=== PATIENT | male | born 1995 | race Caucasian/White ===

== ENCOUNTER 2018-09-28 18:56 | Emergency (ER) | payer BC, OTHER ==
[~2018-09-28] VITALS: Ht 165.1 cm; Wt 86.2 kg
[2018-09-28 19:43] VITALS: BP 155/92
[2018-09-28] MEDS ORDERED: IBUPROFEN 600 MG TABLET PO ONE ×2 (20:30→20:32)
[2018-09-28] MEDS ORDERED: CEFTRIAXONE 500 MG VIAL IM ONE (20:30)
[2018-09-28] MEDS ORDERED: AZITHROMYCIN 250 MG TABLET PO ONE (20:30)
[2018-09-28] MEDS ORDERED: ONDANSETRON 4 MG TAB.RAPDIS SL ONE (20:30)
[2018-09-28] MEDS ORDERED: AZITHROMYCIN 250 MG TABLET ONE (20:31)
[2018-09-28] MEDS ORDERED: CEFTRIAXONE 500 MG VIAL ONE (20:31)
[2018-09-28] MEDS ORDERED: ONDANSETRON 4 MG TAB.RAPDIS ONE (20:32)
[2018-09-28 20:36] LABS: BILIRUBIN,URINE Negative (NEGATIVE); BLOOD, URINE Negative Ery/uL (NEGATIVE); COLOR,URINE Yellow (YELLOW); KETONES,URINE Negative (NEGATIVE); LEUKOCYTE ESTERASE ,URINE Negative (NEGATIVE); NITRITE, URINE Negative (NEGATIVE); PH,URINE 7.5 (5.0-8.0); PROTEIN,URINE Negative (NEGATIVE); UGLUCOSE Negative (NEGATIVE)
[2018-09-28 20:38] LABS: APPEARANCE,URINE HAZY (CLEAR)
[2018-09-28 20:45] LABS: BACTERIA,URINE Moderate /HPF (None Seen); RBC,URINE 0-2 /HPF (0-2); SQUAMOUS EPITHELIAL CELL,UR Few /HPF (None Seen); WBC,URINE 0-2 /HPF (0-3)
== END 2018-09-28 20:52 | disposition home or self-care (01) ==
LOC: ER 19:08
DX: N45.1 Epididymitis (principal); F10.10 Alcohol abuse, uncomplicated; Y90.9 Presence of alcohol in blood, level not specified
CPT/HCPCS: 81001; 87086; 87491; 87591; 99284; J0696; Q0162; 81000-TC

== ENCOUNTER 2019-06-12 13:49 | Emergency (ER) | payer BC, OTHER ==
[~2019-06-12] VITALS: Ht 162.6 cm; Wt 89.4 kg
--- NOTE | 2019-06-12 14:15 | NUR ---
c/o palpitation started yesterday, denies chest pain. Patient a/ox4, no distress noted, needs attended. Kept comfortable. Attached to the marble polisher.
[2019-06-12 14:42] LABS: BASOPHILS # (AUTO) 0.1 /CMM (0.0-0.2); BASOPHILS % (AUTO) 1.2 % (0.0-2.0); EOSINOPHILS % (AUTO) 0.4 % (0.0-6.0); HEMATOCRIT 46 % (39-51); HEMOGLOBIN 15.6 g/dL (13.5-17.5); LYMPHOCYTES # (AUTO) 2.1 /CMM (0.8-4.8); LYMPHOCYTES % (AUTO) 29.8 % (20.0-44.0); MEAN CORPUSCULAR HGB CONC 34 g/dl (31.0-36.0); MEAN CORPUSCULAR VOLUME 95 fL (80-96); MONOCYTES # (AUTO) 0.4 /CMM (0.1-1.30); MONOCYTES % (AUTO) 6.1 % (2.0-12.0); NEUTROPHILS # (AUTO) 4.5 /CMM (1.8-8.9); NEUTROPHILS % (AUTO) 62.5 % (43.0-81.0); PLATELET COUNT (AUTO) 444 /CMM (150-450); RED BLOOD CELL COUNT(AUTO) 4.84 MIL/uL (4.5-6.0); WHITE BLOOD COUNT (AUTO) 7.2 K/uL (4.3-11.0)
[2019-06-12 14:58] LABS: CALCIUM, SERUM 9.1 mg/dL (8.5-10.1); CARBON DIOXIDE 28 mmol/L (21-32); CHLORIDE 103 mmol/L (98-107); GLUCOSE 96 mg/dL (74-106); POTASSIUM 3.8 mmol/L (3.5-5.1); SODIUM SERUM 141 mmol/L (136-145)
[2019-06-12 14:59] LABS: CREATININE 1.1 mg/dL (0.6-1.3); UREA NITROGEN, BLOOD 15 mg/dL (7-18)
[2019-06-12 15:05] LABS: BILIRUBIN,DIRECT 0.1 mg/dL (0.0-0.2); BILIRUBIN,TOTAL 0.4 mg/dL (0.2-1.0)
[2019-06-12 15:06] LABS: ALANINE AMINOTRANSFERASE 62 U/L (12-78); ALBUMIN 3.9 g/dL (3.4-5.0); ALKALINE PHOSPHATASE 66 U/L (46-116); ASPARTATE AMINOTRANSFERASE 36 U/L (15-37)
[2019-06-12 15:07] LABS: TOTAL PROTEIN, SERUM 8.1 g/dL (6.4-8.2)
[2019-06-12 15:57] VITALS: BP 140/86
== END 2019-06-12 15:57 | disposition home or self-care (01) ==
LOC: ER 13:49
DX: R00.2 Palpitations (principal); F10.10 Alcohol abuse, uncomplicated; Y90.9 Presence of alcohol in blood, level not specified; Z60.2 Problems related to living alone
CPT/HCPCS: 36415; 71045-TC; 80048-TC; 80076-TC; 84484-TC; 85025-TC

== ENCOUNTER 2019-10-10 14:24 | Emergency (ER) | payer BC, OTHER ==
[~2019-10-10] VITALS: Ht 165.1 cm; Wt 90.3 kg
[2019-10-10] MEDS ORDERED: TETRAcaine 5 ML BOTTLE EACHEYE ONE (15:00)
[2019-10-10] MEDS ORDERED: SOD BORATE/BORIC AC/H2O/NACL 118 ML BOTTLE OP ONE (15:00)
[2019-10-10] MEDS ORDERED: FLUORESCEIN SODIUM OPHTH 1 EA STRIP OP ONE (15:00)
[2019-10-10] MEDS ORDERED: FLUORESCEIN SODIUM OPHTH 1 EA STRIP ONE (15:07)
--- NOTE | 2019-10-10 15:27 | NUR ---
Patient discharged to home in stable condition. Written and verbal after care instructions given. Patient verbalizes understanding of instruction.
[2019-10-10 15:30] VITALS: BP 131/87
== END 2019-10-10 15:31 | disposition home or self-care (01) ==
LOC: ER 14:24
DX: S05.02XA Injury of conjunctiva and corneal abrasion without foreign body, left eye, initial encounter (principal); Z60.2 Problems related to living alone; X58.XXXA Exposure to other specified factors, initial encounter; Y93.89 Activity, other specified; Y92.89 Other specified places as the place of occurrence of the external cause; Y99.8 Other external cause status

== ENCOUNTER 2020-01-05 09:52 | Emergency (ER) | payer BC, OTHER ==
[~2020-01-05] VITALS: Ht 165.1 cm; Wt 86.2 kg
--- NOTE | 2020-01-05 09:57 | NUR ---
CAME IN FOR L FLANK PAIN x 1WEEK, 6 PS. TO ER BED 9, HOOKED TO MONITOR, DR FONTENOT AT BEDSIDE
[2020-01-05] MEDS ORDERED: KETOROLAC TROMETHAMINE INJ 60 MG/2 ML VIAL IM ONE (10:10)
[2020-01-05 10:11] LABS: APPEARANCE,URINE Clear (CLEAR); BILIRUBIN,URINE Negative (NEGATIVE); BLOOD, URINE Trace-lysed Ery/uL (NEGATIVE); COLOR,URINE Yellow (YELLOW); KETONES,URINE Negative (NEGATIVE); LEUKOCYTE ESTERASE ,URINE Negative (NEGATIVE); NITRITE, URINE Negative (NEGATIVE); PROTEIN,URINE Negative (NEGATIVE); UGLUCOSE Negative (NEGATIVE); UROBILINOGEN,URINE 0.2 EU/dL (0.2)
[2020-01-05] MEDS: KETOROLAC TROMETHAMINE INJ 30 MG/ML VIAL IM/IV ONE (10:15)
[2020-01-05 10:26] LABS: BACTERIA,URINE Few /HPF (None Seen); RBC,URINE 0-2 /HPF (0-2); SQUAMOUS EPITHELIAL CELL,UR Few /HPF (None Seen)
[2020-01-05 10:46] VITALS: BP 142/80
--- NOTE | 2020-01-05 10:46 | NUR ---
Patient discharged to home in stable condition. Written and verbal after care instructions given. Patient verbalizes understanding of instruction.
== END 2020-01-05 10:47 | disposition home or self-care (01) ==
LOC: ER 09:52
DX: M54.5 Low back pain (principal)
CPT/HCPCS: 81001; 96372; 99283; J1885; 81000-TC

== ENCOUNTER 2020-05-28 09:51 | Emergency (ER) | payer BC, OTHER ==
[~2020-05-28] VITALS: Ht 165.1 cm; Wt 91.2 kg
[2020-05-28] MEDS ORDERED: KETOROLAC TROMETHAMINE 15 MG/ML VIAL ONE (10:10)
--- NOTE | 2020-05-28 10:10 | NUR ---
RUQ ABDOMINAL PAIN SINCE LAST NIGHT. -N/V. PATIENT A/OX4, BREATHING EVEN AND UNLABORED, NO SOB NOTED, NEEDS ATTENDED, KEPT COMFORTABLE. ATTACHED TO THE DEXTRINE MIXER.
[2020-05-28] MEDS ORDERED: KETOROLAC TROMETHAMINE INJ 30 MG/ML VIAL IV ONE (10:30)
[2020-05-28] MEDS ORDERED: IV NS 0.9% 1,000 ML BAG IV ONE (10:30)
[2020-05-28 10:54] LABS: BASOPHILS # (AUTO) 0.1 /CMM (0.0-0.2); BASOPHILS % (AUTO) 0.8 % (0.0-2.0); EOSINOPHILS % (AUTO) 0.6 % (0.0-6.0); HEMATOCRIT 46 % (39-51); HEMOGLOBIN 15.5 g/dL (13.5-17.5); LYMPHOCYTES # (AUTO) 1.7 /CMM (0.8-4.8); LYMPHOCYTES % (AUTO) 24.9 % (20.0-44.0); MEAN CORPUSCULAR HGB CONC 34 g/dl (31.0-36.0); MEAN CORPUSCULAR VOLUME 95 fL (80-96); MONOCYTES # (AUTO) 0.5 /CMM (0.1-1.30); MONOCYTES % (AUTO) 7.5 % (2.0-12.0); NEUTROPHILS # (AUTO) 4.6 /CMM (1.8-8.9); NEUTROPHILS % (AUTO) 66.2 % (43.0-81.0); PLATELET COUNT (AUTO) 265 /CMM (150-450); WHITE BLOOD COUNT (AUTO) 6.9 K/uL (4.3-11.0)
--- NOTE | 2020-05-28 11:00 | NUR ---
PATIENT RESTING, NO DISTRESS NOTED.
[2020-05-28 11:12] LABS: ALBUMIN 4.2 g/dL (3.4-5.0); BILIRUBIN,DIRECT 0.3 mg/dL (0.0-0.2); BILIRUBIN,TOTAL 0.9 mg/dL (0.2-1.0); CALCIUM, SERUM 9.3 mg/dL (8.5-10.1); POTASSIUM 3.8 mmol/L (3.5-5.1); TOTAL PROTEIN, SERUM 8.1 g/dL (6.4-8.2)
[2020-05-28 11:17] LABS: BILIRUBIN,URINE NEGATIVE (NEGATIVE); BLOOD, URINE NEGATIVE Ery/uL (NEGATIVE); COLOR,URINE YELLOW (YELLOW); LEUKOCYTE ESTERASE ,URINE NEGATIVE (NEGATIVE); NITRITE, URINE POSITIVE (NEGATIVE); PH,URINE 6.5 (5.0-8.0); PROTEIN,URINE NEGATIVE (NEGATIVE); UGLUCOSE NEGATIVE (NEGATIVE); UROBILINOGEN,URINE 0.2 EU/dL (0.2)
[2020-05-28 11:34] LABS: BACTERIA,URINE Moderate /HPF (None Seen); RBC,URINE 0-2 /HPF (0-2); SQUAMOUS EPITHELIAL CELL,UR Rare /HPF (None Seen); WBC,URINE 0-2 /HPF (0-3)
[2020-05-28] MEDS ORDERED: MAG HYDROX/AL HYDROX/SIMETH 30 ML UDC ONE (11:56)
[2020-05-28] MEDS ORDERED: LIDOCAINE VISCOUS 2% UD 15 ML UDC ONE (11:56)
[2020-05-28] MEDS ORDERED: MAG HYDROX/AL HYDROX/SIMETH 30 ML UDC PO ONE (12:00)
[2020-05-28] MEDS ORDERED: LIDOCAINE VISCOUS 2% UD 15 ML UDC MM ONE (12:00)
--- NOTE | 2020-05-28 12:01 | NUR ---
PER PATIENT, HE HAD HX OF COVID BACK IN MARCH, INFORMED DR. GALE, AND CANCELLED COVID PCR TEST AT THIS TIME.
--- NOTE | 2020-05-28 12:15 | NUR ---
[employer] DAT[employer] DEVELOPER SURGEON DR. RIKKI SERVIN FOR A CONSULT.
--- NOTE | 2020-05-28 12:47 | NUR ---
Patient's a/ox4, denies paina t this time. Rx provided and explained. IV removed. Catheter intact and site benign. Pressure and 4x4 applied to site. No bleeding noted.Patient discharged to home in stable condition. Written and verbal after care instructions given. Patient verbalizes understanding of instruction.
[2020-05-28 12:48] VITALS: BP 136/77
== END 2020-05-28 12:48 | disposition home or self-care (01) ==
LOC: ER 09:54
DX: R10.13 Epigastric pain (principal); K76.0 Fatty (change of) liver, not elsewhere classified; R10.11 Right upper quadrant pain; Z60.2 Problems related to living alone
CPT/HCPCS: 36415; 71045; 76705; 80048; 80076; 81001; 83690; 85025; 87086; 96361; 96374; 99285; J1885; J7030

== ENCOUNTER 2020-06-26 18:57 | Emergency (ER) | payer BC, OTHER ==
[~2020-06-26] VITALS: Ht 165.1 cm; Wt 89.8 kg
--- NOTE | 2020-06-26 19:47 | NUR ---
PATIENT CAME TO THE ER BED 18 C/O LEFT FLANK PAIN THAT RADIATES FROM THE BACK SINCE YESTERDAY. PATIENT STATES THAT HE WAS NOT ABLE TO HAVE A BOWEL MOVEMENT FOR THE PAST 2 DAYS. PATIENT STATES THAT WHATEVER HE TRIES TO EAT WILL BE VOMITED BACK UP. DENIES HEMATEMSIS. PATIENT IS AAOX4. NO SOB. BREATHING EVENLY AND UNLABORED ON ROOM AIR. CONNECTED TO THE MONITOR.
--- NOTE | 2020-06-26 19:48 | NUR ---
RETURNED FROM CT.
--- NOTE | 2020-06-26 19:53 | NUR ---
blood collected and sent to the lab.
[2020-06-26 19:58] LABS: BASOPHILS # (AUTO) 0.1 /CMM (0.0-0.2); BASOPHILS % (AUTO) 0.3 % (0.0-2.0); HEMATOCRIT 51 % (39-51); HEMOGLOBIN 16.9 g/dL (13.5-17.5); LYMPHOCYTES # (AUTO) 0.9 /CMM (0.8-4.8); LYMPHOCYTES % (AUTO) 5.5 % (20.0-44.0); MEAN CORPUSCULAR HGB CONC 33 g/dl (31.0-36.0); MEAN CORPUSCULAR VOLUME 96 fL (80-96); MONOCYTES % (AUTO) 5.9 % (2.0-12.0); NEUTROPHILS # (AUTO) 14.7 /CMM (1.8-8.9); NEUTROPHILS % (AUTO) 88.3 % (43.0-81.0); PLATELET COUNT (AUTO) 284 /CMM (150-450); RED BLOOD CELL COUNT(AUTO) 5.29 MIL/uL (4.5-6.0); WHITE BLOOD COUNT (AUTO) 16.6 K/uL (4.3-11.0)
[2020-06-26] MEDS ORDERED: KETOROLAC TROMETHAMINE 15 MG/ML VIAL ONE (20:00)
[2020-06-26] MEDS ORDERED: ONDANSETRON HCL/PF 4 MG/2 ML VIAL ONE (20:00)
[2020-06-26 20:05] LABS: CALCIUM, SERUM 9.5 mg/dL (8.5-10.1); POTASSIUM 3.7 mmol/L (3.5-5.1)
[2020-06-26] MEDS: KETOROLAC TROMETHAMINE INJ 30 MG/ML VIAL IV ONE (20:06)
--- NOTE | 2020-06-26 20:06 | NUR ---
URINE SENT TO LAB,
[2020-06-26] MEDS: ONDANSETRON HCL/PF 4 MG/2 ML VIAL IVP ONE (20:07)
[2020-06-26 20:10] LABS: BILIRUBIN,URINE SMALL (NEGATIVE); COLOR,URINE YELLOW (YELLOW); LEUKOCYTE ESTERASE ,URINE Negative (NEGATIVE); NITRITE, URINE Negative (NEGATIVE); PH,URINE 5.5 (5.0-8.0); PROTEIN,URINE Trace mg/dl (NEGATIVE); UGLUCOSE Negative (NEGATIVE)
[2020-06-26 20:12] LABS: ALBUMIN 4.4 g/dL (3.4-5.0); BILIRUBIN,DIRECT 0.3 mg/dL (0.0-0.2); BILIRUBIN,TOTAL 1.3 mg/dL (0.2-1.0); TOTAL PROTEIN, SERUM 9.2 g/dL (6.4-8.2)
[2020-06-26 20:43] LABS: BACTERIA,URINE Rare /HPF (None Seen); SQUAMOUS EPITHELIAL CELL,UR Few /HPF (None Seen); WBC,URINE NONE SEEN /HPF (0-3)
[2020-06-26] MEDS ORDERED: CIPROFLOXACIN HCL 500 MG TABLET ONE (21:06)
[2020-06-26] MEDS ORDERED: METRONIDAZOLE 500 MG TABLET ONE (21:07)
[2020-06-26] MEDS: METRONIDAZOLE 500 MG TABLET PO ONE (21:09)
[2020-06-26] MEDS: CIPROFLOXACIN HCL 500 MG TABLET PO ONE (21:09)
[2020-06-26 21:17] VITALS: BP 131/76
--- NOTE | 2020-06-26 21:17 | NUR ---
Patient discharged to home in stable condition. Written and verbal after care instructions given. Patient verbalizes understanding of instruction.IV removed. Catheter intact and site benign. Pressure and 4x4 applied to site. No bleeding noted.Pt ambulatory with a steady gait
== END 2020-06-26 21:17 | disposition home or self-care (01) ==
LOC: ER 18:57
DX: K57.32 Diverticulitis of large intestine without perforation or abscess without bleeding (principal); R11.2 Nausea with vomiting, unspecified; Z60.2 Problems related to living alone
CPT/HCPCS: 36415; 74176; 80048; 80076; 81001; 83690; 85025; 87086; 96374; 96375; 99284; J1885; J2405

== ENCOUNTER 2020-10-27 08:37 | Emergency (ER) | payer BC, OTHER ==
[~2020-10-27] VITALS: Ht 165.1 cm; Wt 80.7 kg
--- NOTE | 2020-10-27 09:00 | NUR ---
patient came in to the er c/o headache x 1 week. On room air, breathing evenly and unlabored. Ambulatory with steady gait. Kept comfortable, will continue to monitor accordingly.
--- NOTE | 2020-10-27 09:05 | NUR ---
ER PHLEB AT BEDSIDE FOR EVAL.
[2020-10-27 09:18] LABS: BASOPHILS % (AUTO) 0.6 % (0.0-2.0); EOSINOPHILS % (AUTO) 0.2 % (0.0-6.0); HEMATOCRIT 49 % (39-51); HEMOGLOBIN 16.3 g/dL (13.5-17.5); LYMPHOCYTES # (AUTO) 1.2 /CMM (0.8-4.8); LYMPHOCYTES % (AUTO) 18.5 % (20.0-44.0); MEAN CORPUSCULAR HGB CONC 34 g/dl (31.0-36.0); MEAN CORPUSCULAR VOLUME 95 fL (80-96); MONOCYTES # (AUTO) 0.3 /CMM (0.1-1.30); MONOCYTES % (AUTO) 5.1 % (2.0-12.0); NEUTROPHILS % (AUTO) 75.6 % (43.0-81.0); PLATELET COUNT (AUTO) 277 /CMM (150-450); RED BLOOD CELL COUNT(AUTO) 5.14 MIL/uL (4.5-6.0); WHITE BLOOD COUNT (AUTO) 6.7 K/uL (4.3-11.0)
--- NOTE | 2020-10-27 09:24 | NUR ---
wheeled patient to ct accompanied by lili
[2020-10-27 09:30] LABS: ALBUMIN 4.1 g/dL (3.4-5.0); BILIRUBIN,DIRECT 0.2 mg/dL (0.0-0.2); BILIRUBIN,TOTAL 0.7 mg/dL (0.2-1.0); CALCIUM, SERUM 9.2 mg/dL (8.5-10.1); CREATININE 1.1 mg/dL (0.6-1.3); TOTAL PROTEIN, SERUM 8.3 g/dL (6.4-8.2)
--- NOTE | 2020-10-27 09:33 | NUR ---
patient came back from ct
[2020-10-27] MEDS ORDERED: LORA-259 PO (09:48)
--- NOTE | 2020-10-27 10:03 | NUR ---
Patient discharged to home in stable condition. Written and verbal after care instructions given. Patient verbalizes understanding of instruction.
--- NOTE | 2020-10-27 10:05 | NUR ---
unable to depart due to meditech issues.
[2020-10-27 11:54] VITALS: BP 127/71
== END 2020-10-27 11:54 | disposition home or self-care (01) ==
LOC: ER 08:45
DX: F41.9 Anxiety disorder, unspecified (principal); R51.9 Headache, unspecified; Z60.2 Problems related to living alone; Z79.899 Other long term (current) drug therapy
CPT/HCPCS: 36415; 70450-TC; 80048-TC; 80076-TC; 85025-TC

== ENCOUNTER 2021-09-08 09:26 | Emergency (ER) | payer BC, OTHER ==
[~2021-09-08] VITALS: Ht 165.1 cm; Wt 83.9 kg
[~2021-09-08 09:26] MED LIST: LORA-259 PO
--- NOTE | 2021-09-08 09:40 | NUR ---
BIBS this 26/male with CC of "Abdominal pain/nausea/vomiting +constipation. Hx Diverticulitis"x1week. On and off cramping pain. Patient is AAOx4. Vitals checked. Placed comfortably on bed.
[2021-09-08] MEDS ORDERED: IV NS 0.9% 1,000 ML BAG IV ONE (10:00)
--- NOTE | 2021-09-08 10:20 | NUR ---
IV CANNULA G18 INSERTED ON RIGHT AC. BLOODS DRAWN AND SENT GIVEN TO ATHLETIC COORDINATOR
[2021-09-08] MEDS ORDERED: CT SWABBABLE VALVE TRANS SET 1 EA INFUS.SET MC ONE (10:21)
[2021-09-08] MEDS ORDERED: IOHEXOL-300 100 ML VIAL IV ONE (10:21)
[2021-09-08] MEDS ORDERED: IV NS 0.9% 250 ML IV ONE (10:22)
--- NOTE | 2021-09-08 10:22 | NUR ---
IV NS 1L BOLUS STARTED
--- NOTE | 2021-09-08 10:25 | NUR ---
CXR DONE AT BEDSIDE
[2021-09-08 10:31] LABS: BASOPHILS % (AUTO) 0.1 % (0.0-2.0); HEMATOCRIT 44 % (39-51); HEMOGLOBIN 14.9 g/dL (13.5-17.5); LYMPHOCYTES # (AUTO) 0.7 K/uL (0.8-4.8); LYMPHOCYTES % (AUTO) 3.9 % (20.0-44.0); MEAN CORPUSCULAR HGB CONC 34 g/dl (31.0-36.0); MEAN CORPUSCULAR VOLUME 93 fL (80-96); NEUTROPHILS # (AUTO) 15.6 K/uL (1.8-8.9); PLATELET COUNT (AUTO) 351 K/uL (150-450); RED BLOOD CELL COUNT(AUTO) 4.77 MIL/uL (4.5-6.0); WHITE BLOOD COUNT (AUTO) 17.3 K/uL (4.3-11.0)
--- NOTE | 2021-09-08 10:35 | NUR ---
WHEELED PATIENT TO RAD DEPT FOR CT OF ABDOMEN
[2021-09-08 10:42] LABS: CALCIUM, SERUM 9.4 mg/dL (8.5-10.1); CREATININE 0.9 mg/dL (0.6-1.3); POTASSIUM 3.2 mmol/L (3.5-5.1)
[2021-09-08 10:47] LABS: ALBUMIN 3.4 g/dL (3.4-5.0); BILIRUBIN,DIRECT 0.2 mg/dL (0.0-0.2); BILIRUBIN,TOTAL 0.8 mg/dL (0.2-1.0); TOTAL PROTEIN, SERUM 8.7 g/dL (6.4-8.2)
[2021-09-08] MEDS ORDERED: KETOROLAC TROMETHAMINE INJ 30 MG/ML VIAL ONE (11:21)
[2021-09-08] MEDS ORDERED: IBUP-1957 PO (11:24)
[2021-09-08] MEDS ORDERED: HYDR-4303 PO (11:24)
[2021-09-08] MEDS ORDERED: AMOX-430 PO (11:24)
[2021-09-08] MEDS ORDERED: KETOROLAC TROMETHAMINE INJ 30 MG/ML VIAL IV ONE (11:30)
[2021-09-08] MEDS ORDERED: PIPERACILLIN /TAZOBACTAM 3.375 G in IV D5W 50 ML IV ONE (11:30)
--- NOTE | 2021-09-08 11:50 | NUR ---
IV CANNULA REMOVED.
--- NOTE | 2021-09-08 11:54 | NUR ---
Patient discharged to home in stable condition. Written and verbal after care instructions given. Patient verbalizes understanding of instruction.
[2021-09-08 11:56] VITALS: BP 127/78
[2021-09-08 16:03] LABS: LYMPHOCYTES % (MANUAL) 5 % (16-48); MONOCYTES % (MANUAL) 9 % (0-11.0); NEUTROPHILS % (MANUAL) 86 (42-76)
== END 2021-09-08 11:57 | disposition home or self-care (01) ==
LOC: ER 09:30
DX: K57.32 Diverticulitis of large intestine without perforation or abscess without bleeding (principal); Z60.2 Problems related to living alone; Z79.899 Other long term (current) drug therapy
CPT/HCPCS: 36415; 71045; 74177; 80048; 80076; 83690; 85007; 85025; 96361; 96365; 96375; 99285; J1885; J2543; J7030; J7050; J7060; Q9967

== ENCOUNTER 2024-05-16 09:35 | Inpatient (IN) | payer BC, OTHER ==
[~2024-05-16] VITALS: Ht 165.1 cm; Wt 90.7 kg
[~2024-05-16 09:35] MED LIST changes: +AMOX-430 PO; +HYDR-4303 PO; +IBUP-1957 PO
[2024-05-16 09:45] VITALS: O2SAT 97
[2024-05-16 10:01] LABS: BASOPHILS % (AUTO) 0.1 % (0.0-2.0); HEMATOCRIT 48 % (39-51); HEMOGLOBIN 16.2 g/dL (13.5-17.5); LYMPHOCYTES # (AUTO) 0.4 K/uL (0.8-4.8); LYMPHOCYTES % (AUTO) 4.1 % (20.0-44.0); MEAN CORPUSCULAR HEMOGLOBIN 31 PG (26.0-33.0); MEAN CORPUSCULAR HGB CONC 34 g/dl (31.0-36.0); MEAN CORPUSCULAR VOLUME 92 fL (80-96); MONOCYTES # (AUTO) 0.6 K/uL (0.1-1.30); NEUTROPHILS # (AUTO) 9.7 K/uL (1.8-8.9); NEUTROPHILS % (AUTO) 89.8 % (43.0-81.0); PLATELET COUNT (AUTO) 228 K/uL (150-450); RED BLOOD CELL COUNT(AUTO) 5.26 MIL/uL (4.5-6.0); RED CELL DISTRIBUTION WIDTH 12.7 % (11.5-15.0); WHITE BLOOD COUNT (AUTO) 10.8 K/uL (4.3-11.0)
[2024-05-16 10:10] LABS: CALCIUM, SERUM 8.7 mg/dL (8.5-10.1); CREATININE 0.9 mg/dL (0.6-1.3)
[2024-05-16 10:12] LABS: POTASSIUM 2.7 mmol/L (3.5-5.1)
[2024-05-16 10:15] LABS: ALBUMIN 3.8 g/dL (3.4-5.0); BILIRUBIN,DIRECT 0.3 mg/dL (0.0-0.2); BILIRUBIN,TOTAL 0.8 mg/dL (0.2-1.0); TOTAL PROTEIN, SERUM 8.8 g/dL (6.4-8.2)
[2024-05-16 10:33] LABS: APPEARANCE,URINE CLEAR (CLEAR); BILIRUBIN,URINE 1+ (NEGATIVE); BLOOD, URINE 1+ Ery/uL (NEGATIVE); COLOR,URINE YELLOW (YELLOW); KETONES,URINE TRACE mg/dL (NEGATIVE); LEUKOCYTE ESTERASE ,URINE NEGATIVE (NEGATIVE); NITRITE, URINE NEGATIVE (NEGATIVE); PH,URINE 6.5 (5.0-8.0); PROTEIN,URINE 1+ mg/dl (NEGATIVE); UGLUCOSE NEGATIVE (NEGATIVE); UROBILINOGEN,URINE 0.2 EU/dL (0.2)
[2024-05-16 10:41] LABS: MUCUS,URINE Moderate /LPF (None Seen)
[2024-05-16 10:42] LABS: ADD URINE CULTURE NO; BACTERIA,URINE Rare /HPF (None Seen); SQUAMOUS EPITHELIAL CELL,UR None Seen /HPF (None Seen); WBC,URINE NONE SEEN /HPF (0-3)
[2024-05-16] MEDS ORDERED: IV NS 0.9% 1,000 ML BAG IV ONE (11:00)
[2024-05-16] MEDS ORDERED: ONDANSETRON HCL/PF 4 MG/2 ML VIAL ONE (11:03)
[2024-05-16] MEDS ORDERED: POTASSIUM CHLORIDE 20 MEQ TAB.PRT.SR PO ONE (11:03)
[2024-05-16] MEDS: IV LR 1000 ML 1,000 ML BAG IV ONE ×2 (11:10→12:10)
[2024-05-16] MEDS: ONDANSETRON HCL/PF 4 MG/2 ML VIAL IV ONE (11:11)
[2024-05-16] MEDS: POTASSIUM CHLORIDE 20 MEQ TAB.PRT.SR PO ONE (11:13)
[2024-05-16] MEDS ORDERED: ERGO500093 PO (12:05)
[2024-05-16] MEDS ORDERED: LINA145C PO (12:05)
[2024-05-16] MEDS ORDERED: PIPERACI/TAZO 3.375GM/D5W 50ML PB IV ONE (12:06)
[2024-05-16] MEDS: PIPERACILLIN /TAZOBACTAM 3.375 G in IV D5W 50 ML IV ONE (12:14)
[2024-05-16] MEDS ORDERED: ONDANSETRON HCL/PF 4 MG/2 ML VIAL IVP PRN (12:30)
[2024-05-16] MEDS ORDERED: MORPHINE SULFATE INJ 2 MG/ML DISP.SYRIN IV PRN (12:30)
[2024-05-16 16:00] VITALS: BP 128/91; TEMP 99.3; O2SAT 98
[2024-05-16] MEDS: PIPERACILLIN /TAZOBACTAM 3.375 G in IV D5W 100 ML IV SCH (16:31)
[2024-05-16 20:00] VITALS: BP 125/73; TEMP 98.8; O2SAT 100
[2024-05-16] MEDS: IV D5/0.45 NACL 1,000 ML IV PRN (20:07)
[2024-05-17 07:30] VITALS: BP 136/91; TEMP 98.2; O2SAT 96
[2024-05-17 08:10] LABS: BASOPHILS % (AUTO) 0.2 % (0.0-2.0); EOSINOPHILS % (AUTO) 0.3 % (0.0-6.0); HEMATOCRIT 42 % (39-51); LYMPHOCYTES # (AUTO) 1.1 K/uL (0.8-4.8); LYMPHOCYTES % (AUTO) 18.6 % (20.0-44.0); MEAN CORPUSCULAR HEMOGLOBIN 31 PG (26.0-33.0); MEAN CORPUSCULAR HGB CONC 34 g/dl (31.0-36.0); MEAN CORPUSCULAR VOLUME 91 fL (80-96); MONOCYTES # (AUTO) 0.8 K/uL (0.1-1.30); MONOCYTES % (AUTO) 13.5 % (2.0-12.0); NEUTROPHILS # (AUTO) 3.8 K/uL (1.8-8.9); NEUTROPHILS % (AUTO) 67.4 % (43.0-81.0); PLATELET COUNT (AUTO) 190 K/uL (150-450); RED BLOOD CELL COUNT(AUTO) 4.56 MIL/uL (4.5-6.0); RED CELL DISTRIBUTION WIDTH 12.9 % (11.5-15.0); WHITE BLOOD COUNT (AUTO) 5.7 K/uL (4.3-11.0)
[2024-05-17] MEDS: PANTOPRAZOLE 40 MG VIAL IV SCH (08:33)
[2024-05-17 08:38] LABS: CALCIUM, SERUM 8.3 mg/dL (8.5-10.1); CREATININE 0.8 mg/dL (0.6-1.3); MAGNESIUM 2.2 mg/dL (1.8-2.4); PHOSPHORUS 3.3 mg/dL (2.5-4.9); POTASSIUM 3.6 mmol/L (3.5-5.1)
== END 2024-05-17 13:40 | disposition home or self-care (01) | DRG 392 ==
LOC: ER 09:51 → MED 12:40
DX: K57.20 Diverticulitis of large intestine with perforation and abscess without bleeding (principal); K63.2 Fistula of intestine; E87.6 Hypokalemia; Z79.899 Other long term (current) drug therapy
CPT/HCPCS: 36415; 80048-TC; 80076-TC; 81001; 83605-TC; 83690-TC; 83735-TC; 84100-TC; 85025-TC; 87040-TC; A4223; G0378; J2405; J2470; J2543; J3490; J7050; J7060; J7120